=== PATIENT | male | born 1970 | race Caucasian/White ===

== ENCOUNTER 2018-11-14 12:15 | Inpatient (IN) | payer MEDICAID ==
[~2018-11-14] VITALS: Ht 165.1 cm; Wt 82.0 kg
[2018-11-14 12:29] VITALS: Ht 165.1 cm; Wt 82.0 kg
[2018-11-14 12:49] LABS: BASOPHIL % 0.3 % (0-2); PLATELET COUNT 263 x10^3mcL (130-400); RED CELL DISTRIBUTION WIDTH 12.8 % (11.5-14.5)
[2018-11-14 13:13] LABS: CALCIUM 8.8 mg/dL (8.5-10.1); CARBON DIOXIDE 26.1 mmol/L (21-32); CHLORIDE SERUM 99 mmol/L (98-107); CREATININE SERUM 0.8 mg/dL (0.7-1.3); GFR1 > 60 mL/min; GLUCOSE SERUM 114 mg/dL (74-106); POTASSIUM SERUM 4.3 mmol/L (3.5-5.1); SODIUM SERUM 140 mmol/L (136-145)
[2018-11-14 13:27] LABS: ALBUMIN 4.2 g/dL (3.4-5.0); ALKALINE PHOSPHATASE 105 U/L (46-116); AST/SGOT 17 U/L (15-37); BILIRUBIN TOTAL 0.6 mg/dL (0.20-1.00); LIPASE 99 IU/L (73-393); TOTAL PROTEIN, SERUM 7.9 g/dL (6.4-8.2)
[2018-11-14 13:39] LABS: ALT/SGPT 35 U/L (16-63)
--- NOTE | 2018-11-14 14:05 | NUR ---
PT REPORTS PAIN SINCE 0700 THIS MORNING. PT HAS ABD PAIN TO MIDDLE AREA AND MORE PROMINENT TO L SIDE. REPORTS NORMALL BM "FEW HOURS AGO." MSE COMPLETED BY DR MOYA
--- NOTE | 2018-11-14 15:17 | NUR ---
IVF INFUSING ORDERED. NAD NOTED
--- NOTE | 2018-11-14 15:42 | NUR ---
DR MOYA AT BEDSIDE FOR DISCUSSION OF POC
--- NOTE | 2018-11-14 16:15 | NUR ---
OR NURSE BAM KERNSEIVED REPORT FOR PT.
--- NOTE | 2018-11-14 16:22 | NUR ---
RECEIVED REPORT FROM VIVIANA STRICKLAND IN ER. PATIENT IS CURRENTLY IN OR FOR APPENDECTOMY. AWAITING PATIENT ARRIVAL TO FLOOR.
--- NOTE | 2018-11-14 18:15 | NUR ---
RECEIVED PATIENT FROM OR VIA [facility]. PATIENT IS ALERT AND ORIENTED X4. PT ON O2 2L NC. NO C/O SOB AND NO DISTRESS NOTED. FAMILY IS AT BEDSIDE. MRSA CULTURE OBTAINED. ALL NEEDS MET.
[2018-11-14 18:41] VITALS: BP 111/68
--- NOTE | 2018-11-14 18:52 | NUR ---
RECEIVED PT FROM OR, PT ADMIT FOR APPENDICITIS AND S/P LAP APPY, PT IS A/O X4, VERBAL RESPONSIVE, ABLE TO TELL WHAT HE NEEDS. LUNG SOUND CLEAR BILATERAL, NO COUGH, NO SOB, PT IS ON 2L/MIN NC, PO2 95%, DENY ANY CHEST PAIN OR DISCOMFORT, BOWEL SOUND PRESENT ABSCENT AT THIS MOMENT, THERE ARE 4 BANDAID COVER THE INCISTION SITE. FIRST DRESSING UNABLE TO REMOVE TO TAKE PICTURE, PEDAL PULSE PRESENT BOTH FEET, NO EDEMA, IV AT RIGHT AC, NO LEAKING, NO INFITLRATION. ALL ADLS ASSIST, ALL NEED MET, CALL LIGHT IN REACH, WILL CONTINUE TO MONITOR.
[2018-11-14 20:56] VITALS: BP 112/65
--- NOTE | 2018-11-14 22:58 | NUR ---
GIVEN TORADOL FOR PAIN.
--- NOTE | 2018-11-14 23:19 | NUR ---
NO BOWEL SOUNDS YET POST OP.
--- NOTE | 2018-11-15 00:48 | NUR ---
PATIENT CHECKED AT INTERVALS FOR NEEDS AND SAFETY.CALL LIGHT IN REACH.
--- NOTE | 2018-11-15 04:33 | NUR ---
CHECKED AT INTERVALS FOR NEEEDS AND SAFETY.PATIENT AWAKE USING HIS CELL PHONE.NO COMPLAINT.
--- NOTE | 2018-11-15 05:00 | NUR ---
PATIENT HAS NO BOWEL SOUNDS SINCE AFTER SURGERY YET.
[2018-11-15 05:42] VITALS: BP 96/55
--- NOTE | 2018-11-15 06:15 | NUR ---
NO MAJOR DISTRESS THIS SHIFT.IVF INFUSING.ATB SCHEDULED.WILL ENDORSE TO NEXT SHIFT.
[2018-11-15 06:55] LABS: BASOPHIL % 0.2 % (0-2); PLATELET COUNT 256 x10^3mcL (130-400); RED CELL DISTRIBUTION WIDTH 12.7 % (11.5-14.5)
[2018-11-15 07:01] LABS: CALCIUM 8.6 mg/dL (8.5-10.1); CARBON DIOXIDE 26.4 mmol/L (21-32); CHLORIDE SERUM 104 mmol/L (98-107); CREATININE SERUM 0.8 mg/dL (0.7-1.3); GFR1 > 60 mL/min; GLUCOSE SERUM 134 mg/dL (74-106); POTASSIUM SERUM 4.7 mmol/L (3.5-5.1); SODIUM SERUM 139 mmol/L (136-145)
--- NOTE | 2018-11-15 07:05 | NUR ---
ON SHIFT CHANGES,PATIENT CLAIMED HE IS PASSING GAS NOW,SOLIS AWARE.
--- NOTE | 2018-11-15 07:20 | NUR ---
PATIENT A/OX4, ABLE TO MAKE NEEDS KNOWN AND FOLLOW COMMANDS, SPEECH CLEAR. DENIES HEADACHE OR CHEST PAIN. 2L NC IN PLACE, DENIES FEELING SOB, BREATHING E/U, O2 SAT 98%, WEENING OFF TOLERATING, LUNGS CTA. ABDOMEN W/ LAP SITES X4 AND BANDAIDS CDI. ABD SOFT, BOWEL SOUNDS ACTIVE, PATIENT ADMITS TO PASSING GAS AND TOLERATING CLEAR LIQUID DIET WELL. VOIDING IN RESTROOM. DENIES PAIN AT REST. IV ACCESS TO [facility] SITE WNL. CALL LIGHT WITHIN REACH.
--- NOTE | 2018-11-15 07:45 | NUR ---
REPORTS CRAMPING PAIN TO ABD 7/10 AFTER AMBULATING TO RESTROOM TO VOID. NORCO GIVEN. WILL CONT TO MONITOR AND DOCUMENT RESPONSE ON EMAR.
[2018-11-15 08:50] VITALS: BP 111/70
[2018-11-15] MEDS ORDERED: NORCO1 TA2 PO (09:43)
[2018-11-15 12:58] VITALS: BP 111/70
--- NOTE | 2018-11-15 14:30 | NUR ---
DISCHARGE INSTRUCTIONS AND PRESCRIPTION GIVEN TO PATIENT, VERBALIZED UNDERSTANDING. IV DC'D CATH INTACT. ALL QUESTIONS/CONCERNS ADDRESSED. LEAVING UNIT ACCOMPANIED BY CLINICAL UNIT COORDINATOR.
--- NOTE | 2018-11-15 15:04 | NUR ---
Discount pharmacy card and list to low cost medical clinics given to patient by Shila Vallejo.
== END 2018-11-15 14:40 | disposition home or self-care (01) | DRG 234 ==
LOC: ED 12:15 → MU 15:47
PROVIDERS: Surgery; ADMIT General Practice
PROC: 0DTJ4ZZ Resection of Appendix, Percutaneous Endoscopic Approach (ICD-10-PCS; principal; 2018-11-14 16:30)
DX: K35.80 Unspecified acute appendicitis (principal); I10 Essential (primary) hypertension
CPT/HCPCS: 94150; G0378; J0330; J0690; J1885; J2175; J2250; J2405; J2543; J2704; J3010; J3490; J7030; J7120; Q9967